=== PATIENT | female | born 1980 | race African-American/Black ===

== ENCOUNTER 2017-08-10 09:57 | Emergency (ER) | payer MEDICAID ==
[~2017-08-10] VITALS: Ht 157.5 cm; Wt 113.6 kg
[~2017-08-10 09:57] MED LIST: IBUP-2354 PO
[2017-08-10] MEDS ORDERED: NEOMYCIN/POLYMYXIN B/HYDROCORT 10 ML OTIC SUSPENSION AS ONE (11:30)
[2017-08-10 11:53] VITALS: BP 151/93
== END 2017-08-10 11:55 | disposition home or self-care (01) ==
LOC: EMS 09:58
DX: H60.92 Unspecified otitis externa, left ear (principal); J45.909 Unspecified asthma, uncomplicated; E11.9 Type 2 diabetes mellitus without complications; I10 Essential (primary) hypertension; G43.909 Migraine, unspecified, not intractable, without status migrainosus; Z91.018 Allergy to other foods
CPT/HCPCS: 99283

== ENCOUNTER 2019-02-06 12:27 | Emergency (ER) | payer MEDICAID ==
[~2019-02-06] VITALS: Ht 162.6 cm; Wt 113.6 kg
[2019-02-06 12:39] LABS: GLUCOSE,POINT OF CARE 300 MG/DL (70-110)
[2019-02-06 14:20] LABS: BASOPHILS % (AUTO) 0.4 % (0.0-2.0); EOSINOPHILS % (AUTO) 0.2 % (1.0-6.0); HEMATOCRIT 33.3 % (36-46); HEMOGLOBIN 10.1 g/dL (12.0-16.0); LYMPHOCYTES # (AUTO) 1.2 K/uL (1.0-4.8); MEAN CORPUSCULAR HGB CONC 30.3 G/dL (31.0-37.0); MEAN CORPUSCULAR VOLUME 66 fL (80-100); MONOCYTES # (AUTO) 0.5 K/uL (0.1-1.0); MONOCYTES % (AUTO) 4.6 % (2.0-9.0); NEUTROPHILS # (AUTO) 9.9 K/uL (1.8-7.7); NEUTROPHILS % (AUTO) 84.8 % (40.0-70.0); PLATELET COUNT (AUTO) 417 K/uL (150-450); RED BLOOD CELL COUNT(AUTO) 5.04 MIL/uL (4.00-5.20)
[2019-02-06 14:27] LABS: ANION GAP 10 mmol/L (8-16); CALCIUM, TOTAL 9.5 mg/dL (8.8-10.5); CARBON DIOXIDE 28 mmol/L (22-29); CHLORIDE 99 mmol/L (98-107); CREATININE 0.71 mg/dL (0.60-1.30); GLOMERULAR FILTR. RATE CALC > 60 mL/min (>60); GLUCOSE,RANDOM 276 mg/dL (70-110); SODIUM SERUM 137 mmol/L (136-145); UREA NITROGEN, BLOOD 7 mg/dL (7-18)
[2019-02-06 14:42] LABS: ALANINE AMINOTRANSFERASE 101 U/L (12-78); ALKALINE PHOSPHATASE 89 U/L (46-116); ASPARTATE AMINOTRANSFERASE 66 U/L (15-37); BILIRUBIN,TOTAL 0.9 mg/dL (0.1-1.0); HCG,QUANTITATIVE < 1 mIU/mL (0-6); LIPASE 47 U/L (73-393)
[2019-02-06] MEDS ORDERED: KETOROLAC TROMETHAMINE 30 MG/ML VIAL IM ONE (14:45)
[2019-02-06 16:00] LABS: APPEARANCE,URINE CLOUDY (CLEAR); BILIRUBIN,URINE NEGATIVE (NEGATIVE); GLUCOSE, URINE (UA) >=1000 mg/dL (NEGATIVE); KETONES,URINE TRACE mg/dL (NEGATIVE); LEUKOCYTE ESTERASE ,URINE SMALL (NEGATIVE); NITRATE,URINE NEGATIVE (NEGATIVE); OCCULT BLOOD,URINE NEGATIVE (NEGATIVE); PROTEIN,URINE NEGATIVE (NEGATIVE); UROBILINOGEN,URINE 0.2 mg/dL (<=1.0)
[2019-02-06 16:14] LABS: BACTERIA,URINE Few /HPF (None Seen); RBC,URINE 0-2 /HPF (0-2); SQUAMOUS EPITHELIAL CELL,UR Many /LPF (None Seen); WBC,URINE 26-50 /HPF (0-5)
[2019-02-06 16:18] VITALS: BP 147/84
== END 2019-02-06 16:19 | disposition home or self-care (01) ==
LOC: EMS 12:27
DX: N83.202 Unspecified ovarian cyst, left side (principal); D25.9 Leiomyoma of uterus, unspecified; E11.9 Type 2 diabetes mellitus without complications; J45.909 Unspecified asthma, uncomplicated; I10 Essential (primary) hypertension; Z91.018 Allergy to other foods
CPT/HCPCS: 36415; 76856; 80053; 81001; 82962; 83690; 84702; 85025; 87086; 96372; 99284; J1885

== ENCOUNTER 2024-02-10 12:50 | Inpatient (IN) | payer MEDICAID ==
[~2024-02-10] VITALS: Ht 157.5 cm; Wt 110.0 kg
[~2024-02-10 12:50] MED LIST changes: +AMLO-258 PO; +CLIN300C58 PO; +HYDR25TA84 PO; -IBUP-2354 PO; +INSLAN SQ; +LOSA-381 PO
[2024-02-10] MEDS ORDERED: DEXTROSE 50%-WATER 25 GM/50 ML SYRINGE IVP PRN (13:15)
[2024-02-10] MEDS: SODIUM CHLORIDE 0.9% 1,000 ML IV ONE (13:52)
[2024-02-10] MEDS: AmLODIPine BESYLATE 10 MG TABLET PO SCH (13:53)
[2024-02-10] MEDS: ACETAMINOPHEN 325 MG TABLET PO PRN (13:53)
[2024-02-10] MEDS: HEPARIN SODIUM,PORCINE 5,000 UNITS/ML VIAL SQ SCH (15:04)
[2024-02-10 15:19] LABS: APPEARANCE,URINE CLEAR (CLEAR); BILIRUBIN,URINE NEGATIVE (NEGATIVE); COLOR,URINE LIGHT YELLOW (YELLOW); GLUCOSE, URINE (UA) >=1000 mg/dL (NEGATIVE); KETONES,URINE 40-60 mg/dL (NEGATIVE); LEUKOCYTE ESTERASE ,URINE TRACE (NEGATIVE); NITRATE,URINE NEGATIVE (NEGATIVE); OCCULT BLOOD,URINE NEGATIVE (NEGATIVE); PROTEIN,URINE NEGATIVE (NEGATIVE); SPECIFIC GRAVITIY, URINE 1.033 (1.003-1.030); UROBILINOGEN,URINE <=1.0 mg/dL (<=1.0)
[2024-02-10 15:47] LABS: RBC,URINE None Seen /HPF (0-2); YEAST,URINE Moderate /HPF (None Seen)
[2024-02-10 15:48] LABS: BACTERIA,URINE Rare /HPF (None Seen)
[2024-02-10 16:14] LABS: BASOPHILS % (AUTO) 0.5 % (0.0-2.0); EOSINOPHILS % (AUTO) 0.3 % (1.0-6.0); HEMATOCRIT 33.5 % (36-46); HEMOGLOBIN 10.4 g/dL (12.0-16.0); LYMPHOCYTES # (AUTO) 1.6 K/uL (1.0-4.8); LYMPHOCYTES % (AUTO) 14.1 % (22.0-44.0); MEAN CORPUSCULAR HEMOGLOBIN 22.9 pg (26.0-34.0); MEAN CORPUSCULAR HGB CONC 31.1 G/dL (31.0-37.0); MEAN CORPUSCULAR VOLUME 74 fL (80-100); MONOCYTES # (AUTO) 0.6 K/uL (0.1-1.0); MONOCYTES % (AUTO) 4.8 % (2.0-9.0); NEUTROPHILS # (AUTO) 9.4 K/uL (1.8-7.7); NEUTROPHILS % (AUTO) 80.3 % (40.0-70.0); PLATELET COUNT (AUTO) 291 K/uL (150-450); RED BLOOD CELL COUNT(AUTO) 4.55 MIL/uL (4.00-5.20); RED CELL DISTRIBUTION WIDTH 16.7 % (11.5-14.5); WHITE BLOOD COUNT (AUTO) 11.7 K/uL (4.5-11.0)
[2024-02-10 16:33] LABS: TROPONIN I-HIGH SENSITIVITY 20 ng/L (<51)
[2024-02-10 16:56] LABS: ANION GAP 9 mmol/L (8-16); CALCIUM, TOTAL 9.5 mg/dL (8.8-10.5); CARBON DIOXIDE 29 mmol/L (22-29); CHLORIDE 95 mmol/L (98-107); CREATININE 0.75 mg/dL (0.60-1.30); GLOMERULAR FILTR. RATE CALC > 60 mL/min (>60); GLUCOSE,RANDOM 341 mg/dL (70-110); POTASSIUM 3.7 mmol/L (3.5-5.1); SODIUM SERUM 133 mmol/L (136-145); UREA NITROGEN, BLOOD 10 mg/dL (7-18)
[2024-02-10] MEDS: INSULIN LISPRO 100 UNITS/ML SQ PRN (17:27)
[2024-02-10 17:31] VITALS: BP 179/100; PULSE 94; RESP 18; TEMP 98.1
[2024-02-10] MEDS: HydrALAZINE HCL 20 MG/ML VIAL IVP PRN (17:33)
[2024-02-10 17:51] LABS: RBC MORPHOLOGY COMMENT ABNORMAL RBC MORPH
[2024-02-10 18:51] VITALS: BP 159/83; PULSE 116; RESP 18
[2024-02-10 19:21] VITALS: BP 148/79; PULSE 112; RESP 19; TEMP 98.4
[2024-02-10 20:36] LABS: GLUCOMETER DEV NAME(LOC) 5N.2C; GLUCOSE,POINT OF CARE 306 MG/DL (70-110)
[2024-02-10] MEDS: DOCUSATE SODIUM 100 MG CAPSULE PO SCH (21:00)
[2024-02-10 21:40] LABS: GLUCOMETER DEV NAME(LOC) 5N.2C; GLUCOSE,POINT OF CARE 468 MG/DL (70-110)
[2024-02-10 23:30] VITALS: BP 139/84; PULSE 110; RESP 20; TEMP 98.4
[2024-02-10 23:31] LABS: GLUCOMETER DEV NAME(LOC) 5N.2C; GLUCOSE,POINT OF CARE 396 MG/DL (70-110)
[2024-02-11] VITALS (7 sets, daily range): BP systolic 128–164; BP diastolic 75–95; PULSE 90–107; RESP 18–20; TEMP 98–98.4
[2024-02-11 04:16] LABS: GLUCOMETER DEV NAME(LOC) 5N.2C; GLUCOSE,POINT OF CARE 302 MG/DL (70-110)
[2024-02-11 07:56] LABS: GLUCOMETER DEV NAME(LOC) 5S.2D; GLUCOSE,POINT OF CARE 328 MG/DL (70-110)
[2024-02-11] MEDS: FAMOTIDINE 20 MG TABLET PO SCH (09:09)
[2024-02-11] MEDS: FLUCONAZOLE 150 MG TABLET PO ONE (11:48)
[2024-02-11] MEDS: MetFORMIN HCL 500 MG TABLET PO ONE (11:48)
[2024-02-11 12:21] LABS: GLUCOMETER DEV NAME(LOC) 5N.2C; GLUCOSE,POINT OF CARE 351 MG/DL (70-110)
[2024-02-11] MEDS: MetFORMIN HCL 850 MG TABLET PO SCH (18:22)
[2024-02-11 20:36] LABS: GLUCOMETER DEV NAME(LOC) 5N.2C; GLUCOSE,POINT OF CARE 325 MG/DL (70-110)
[2024-02-12 01:10] LABS: GLUCOMETER DEV NAME(LOC) 5N.2C; GLUCOSE,POINT OF CARE 320 MG/DL (70-110)
[2024-02-12 04:48] VITALS: BP 142/81; PULSE 86; RESP 20; TEMP 98
[2024-02-12 08:12] VITALS: BP 159/89; PULSE 95; RESP 19; TEMP 98.5
[2024-02-12 08:16] LABS: GLUCOMETER DEV NAME(LOC) 6S.2; GLUCOSE,POINT OF CARE 239 MG/DL (70-110)
[2024-02-12] MEDS ORDERED: METF-1211 PO (10:01)
[2024-02-12] MEDS: LOSARTAN POTASSIUM 25 MG TABLET PO ONE (10:44)
[2024-02-12 11:15] LABS: GLUCOMETER DEV NAME(LOC) 6S.2; GLUCOSE,POINT OF CARE 317 MG/DL (70-110)
[2024-02-12 11:37] VITALS: BP 136/80; PULSE 93; RESP 18; TEMP 98.2
[2024-02-12] MEDS ORDERED: MetFORMIN HCL 500 MG TABLET PO SCH (18:00)
== END 2024-02-12 12:50 | disposition home or self-care (01) | DRG 199 ==
LOC: EMS 12:50 → EDH 13:04 → 5S 17:12 → 6N 02-11 23:10
PROVIDERS: ADMIT Internal Medicine; ATTEND Internal Medicine
DX: I10 Essential (primary) hypertension (principal); E11.65 Type 2 diabetes mellitus with hyperglycemia; E66.01 Morbid (severe) obesity due to excess calories; G43.909 Migraine, unspecified, not intractable, without status migrainosus; J45.909 Unspecified asthma, uncomplicated; Z79.899 Other long term (current) drug therapy; Z68.41 Body mass index [BMI] 40.0-44.9, adult; Z91.148 Patient's other noncompliance with medication regimen for other reason; Z91.018 Allergy to other foods; Z83.3 Family history of diabetes mellitus
CPT/HCPCS: 80048; 81001; 82962; 84484; 85025; 93005; 99285; G0378; J0360; J1644

== ENCOUNTER 2024-05-22 14:08 | Emergency (ER) | payer MEDICAID ==
[~2024-05-22] VITALS: Ht 157.5 cm; Wt 88.0 kg
[~2024-05-22 14:08] MED LIST changes: -CLIN300C58 PO; -INSLAN SQ; -LOSA-381 PO; +METF-1211 PO
[2024-05-22 14:25] VITALS: BP 154/107; PULSE 104; RESP 16; TEMP 99.1; O2SAT 98
[2024-05-22] MEDS: SULFAMETHOX/TRIMETH DS 800-160 MG/TABLET PO ONE (17:09)
[2024-05-22] MEDS: ACETAMINOPHEN 500 MG TABLET PO ONE (17:10)
[2024-05-22] MEDS: CEPHALEXIN MONOHYDRATE 500 MG CAPSULE PO ONE (17:10)
[2024-05-22] MEDS ORDERED: SULF-261 PO (17:43)
[2024-05-22] MEDS ORDERED: CEPH-558 PO (17:43)
[2024-05-22] MEDS ORDERED: BACI28.410 TP (17:43)
[2024-05-22] MEDS: BACITRACIN 0.9 GM PACKET OINTMENT TP ONE (18:08)
[2024-05-22] MEDS: LIDOCAINE 1% 10 ML VIAL SQ ONE (18:08)
== END 2024-05-22 19:15 | disposition home or self-care (01) ==
LOC: EMS 14:08
DX: L02.412 Cutaneous abscess of left axilla (principal); J45.909 Unspecified asthma, uncomplicated; E11.9 Type 2 diabetes mellitus without complications; I10 Essential (primary) hypertension; Z91.018 Allergy to other foods
CPT/HCPCS: 99284; 10060; 82962; J3490

== ENCOUNTER 2024-11-14 23:09 | Emergency (ER) | payer MEDICAID ==
[~2024-11-14] VITALS: Ht 157.5 cm; Wt 59.1 kg
[~2024-11-14 23:09] MED LIST changes: +BACI28.410 TP; +CEPH-558 PO; +SULF-261 PO
[2024-11-14 23:16] VITALS: TEMP 98.2
[2024-11-14 23:53] VITALS: BP 173/104; PULSE 111; RESP 18; O2SAT 100
== END 2024-11-15 02:47 | disposition left against medical advice (07) ==
LOC: EMS 23:14
DX: S61.019A Laceration without foreign body of unspecified thumb without damage to nail, initial encounter (principal); R73.9 Hyperglycemia, unspecified; Z53.21 Procedure and treatment not carried out due to patient leaving prior to being seen by health care provider; X58.XXXA Exposure to other specified factors, initial encounter; Y93.89 Activity, other specified; Y92.89 Other specified places as the place of occurrence of the external cause; Y99.8 Other external cause status
CPT/HCPCS: 82962